=== PATIENT | male | born 1965 | race African-American/Black ===

== ENCOUNTER 2017-08-14 03:10 | Emergency (ER) | payer MEDICARE, MEDICAID ==
[~2017-08-14] VITALS: Ht 188 cm; Wt 99.8 kg
[2017-08-14] MEDS ORDERED: LORazepam 1mg tab ORAL ONE (03:15)
--- NOTE | 2017-08-14 03:15 | Emergency Room Report ---
History of Present Illness General Chief Complaint: Overdose Source: Patient, EMS Present Illness HPI The patient presents with chest pressure and dysphoria after ingesting a marijuana edible. He is a dialysis patient with peritoneal dialysis. He denies any fevers. He feels fatigued. There is no headache. He feels that he' s having difficulty with his memory at the moment. Family concerned as he removed his own PD catheter and appeared to do so clumsily. He is anxious but denies SI. Nausea. No pain. No dyspnea. Some feeling like heart racing. No numbness, tingling or unilateral weakness. Still makes urine. No abdominal pain. Allergies: Coded Allergies: No Known Allergies (Unverified , 08/14/17) Patient History Past Medical History: see triage record Social History: Denies: smoking Social History Narrative with family Reviewed Nursing Documentation: PMH: Agreed, PSxH: Agreed Nursing Documentation-PMH Hx Hypertension: Yes Hx Diabetes: Yes - peritoneal dialysis Hx Dialysis: Yes Review of Systems All Other Systems: negative except mentioned in HPI Physical Exam Vital Signs Date Time Temp Pulse Resp B/P (MAP) Pulse Ox O2 Delivery O2 Flow Rate FiO2 08/14/17 02:53 98.2 106 18 136/79 98 Room Air Sp02 EP Interpretation: reviewed, normal General Appearance: well appearing, no apparent distress, GCS 15 Head: normocephalic Eyes: bilateral eye PERRL, bilateral eye Scleral Injection ENT: moist mucus membranes Neck: supple Respiratory: lungs clear, normal breath sounds Cardiovascular #1: tachycardia Cardiovascular #2: 2+ radial (R) Gastrointestinal: normal inspection, normal bowel sounds, non tender, soft, no mass, non-distended, no guarding, no rebound, other - PD cath Musculoskeletal: back normal, gait/station normal, normal range of motion Neurologic: alert, oriented x3, 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 Complicated as he is PD - ESRD. DDx: adverse reaction to THC, electrolyte abnormality, AMI amongst others. Evaluation with EKG, labs. As PD patient, not aggressive hydration. Monitor cor. Ativan ordered. Ativan held as patient sleeping. Labs remarkable for CRF. Urine not obtained. Patient improved with observation. Patient stable for outpatient observation and treatment. Laboratory Tests Test 08/14/17 03:20 White Blood Count 6.2 K/UL (4.8-10.8) Red Blood Count 3.48 M/UL (4.70-6.10) L Hemoglobin 11.3 G/DL (14.2-18.0) L Hematocrit 35.7 % (42.0-52.0) L Mean Corpuscular Volume 103 FL (80-99) H Mean Corpuscular Hemoglobin 32.5 PG (27.0-31.0) H Mean Corpuscular Hemoglobin Concent 31.6 G/DL (32.0-36.0) L Red Cell Distribution Width 14.6 % (11.6-14.8) Platelet Count 283 K/UL (150-450) Mean Platelet Volume 5.6 FL (6.5-10.1) L Neutrophils (%) (Auto) 68.5 % (45.0-75.0) Lymphocytes (%) (Auto) 17.4 % (20.0-45.0) L Monocytes (%) (Auto) 8.4 % (1.0-10.0) Eosinophils (%) (Auto) 4.1 % (0.0-3.0) H Basophils (%) (Auto) 1.6 % (0.0-2.0) Sodium Level 139 mEQ/L (135-145) Potassium Level 4.8 mEQ/L (3.4-4.9) Chloride Level 97 mEQ/L (98-107) L Carbon Dioxide Level 25 mEQ/L (20-30) Anion Gap 17 (5-15) H Blood Urea Nitrogen 67 mg/dL (7-23) H Creatinine 16.0 mg/dL (0.7-1.2) H Estimate Glomerular Filtration Rate 3.2 mL/min (>60) Glucose Level 160 mg/dL (74-106) H Calcium Level 8.2 mg/dL (8.6-10.2) L Total Bilirubin 0.4 mg/dL (0.0-1.2) Aspartate Amino Transferase (AST) 15 U/L (5-40) Alanine Aminotransferase (ALT) 12 U/L (3-41) Alkaline Phosphatase 108 U/L (40-129) Total Creatine Kinase 233 U/L (38-174) H Troponin I < 0.30 ng/mL (<=0.30) Total Protein 7.0 g/dL (6.6-8.7) Albumin 3.8 g/dL (3.5-5.2) Globulin 3.2 g/dL Albumin/Globulin Ratio 1.1 (1.0-2.7) Salicylates Level < 1 mg/dL (10-30) L Acetaminophen Level < 10 ug/mL (10-30) L Serum Alcohol < 10 mg/dL EKG Diagnostic Results Rate: tachycardiac Rhythm: NSR ST Segments: no acute changes Rhythm Strip Diag. Results EP Interpretation: yes Rhythm: no PVC's, no ectopy, other - ST Chest X-Ray Diagnostic Results Chest X-Ray Diagnostic Results : Chest X-Ray Ordered: Yes # of Views/Limited/Complete: 1 View Indication: Other Interpretation: no effusion, no pneumothorax, other - Pulmonary hypertension and cardiomegaly Impression: Other Electronically Signed by: Electronically signed by Charly Colon MD Last Vital Signs Date Time Temp Pulse Resp B/P (MAP) Pulse Ox O2 Delivery O2 Flow Rate FiO2 08/14/17 07:41 98 16 138/80 96 Room Air 08/14/17 03:30 97.0 Status: improved Disposition: HOME, SELF-CARE Condition: Improved Charly Colon M.D. Aug 14, 2017 03:15
[2017-08-14 03:30] VITALS: BP 155/93
[2017-08-14 03:43] LABS: BASOPHILS % (AUTO) 1.6 % (0.0-2.0); EOSINOPHILS % (AUTO) 4.1 % (0.0-3.0); LYMPHOCYTES % (AUTO) 17.4 % (20.0-45.0); MEAN CORPUSCULAR HEMOGLOBIN 32.5 PG (27.0-31.0); MEAN CORPUSCULAR HGB CONC 31.6 G/DL (32.0-36.0); MEAN CORPUSCULAR VOLUME 103 FL (80-99); MEAN PLATELET VOLUME 5.6 FL (6.5-10.1); MONOCYTES % (AUTO) 8.4 % (1.0-10.0); NEUTROPHILS % (AUTO) 68.5 % (45.0-75.0); PLATELET COUNT 283 K/UL (150-450); RED BLOOD COUNT 3.48 M/UL (4.70-6.10); RED CELL DISTRIBUTION WIDTH 14.6 % (11.6-14.8); WHITE BLOOD COUNT 6.2 K/UL (4.8-10.8)
[2017-08-14 03:59] LABS: ACETAMINOPHEN < 10 ug/mL (10-30); ALANINE AMINOTRANSFERASE 12 U/L (3-41); ALBUMIN/GLOBULIN RATIO 1.1 (1.0-2.7); ALCOHOL < 10 mg/dL; ANION GAP 17 (5-15); ASPARTATE AMINO TRANSFERASE 15 U/L (5-40); CALCIUM 8.2 mg/dL (8.6-10.2); CARBON DIOXIDE 25 mEQ/L (20-30); CHLORIDE 97 mEQ/L (98-107); GLOMERULAR FILTRATION RATE 3.2 mL/min (>60); HEMOLYSIS 11; POTASSIUM 4.8 mEQ/L (3.4-4.9); SODIUM 139 mEQ/L (135-145); TROPONIN I < 0.30 ng/mL (<=0.30)
[2017-08-14 05:08] VITALS: BP 144/84
[2017-08-14 07:41] VITALS: BP 138/80
--- NOTE | 2017-08-14 10:13 | Diagnostic Imaging Report ---
Indication: Dyspnea Comparison: None A single view chest radiograph was obtained. Findings: The heart is enlarged. Lungs are clear with normal vascularity. Bones are remarkable. Impression: No acute findings
--- NOTE | 2017-08-20 23:14 | Cardiology Report ---
APPROVED REPORT EKG Measurement Heart [id number] Sinus tachycardia Septal infarct, age undetermined Abnormal ECG
== END 2017-08-14 06:15 | disposition home or self-care (01) ==
LOC: EDBD 03:10 → EMR 04:00
DX: R07.89 Other chest pain (principal); T40.7X5A Adverse effect of cannabis (derivatives), initial encounter; Y92.89 Other specified places as the place of occurrence of the external cause; I12.0 Hypertensive chronic kidney disease with stage 5 chronic kidney disease or end stage renal disease; N18.6 End stage renal disease; E11.9 Type 2 diabetes mellitus without complications; Z99.2 Dependence on renal dialysis
CPT/HCPCS: 36415; 71010; 80053; 82550; 82962; 84484; 85025; 93005; 99283; G0480; 80329

== ENCOUNTER 2020-06-14 07:43 | Emergency (ER) | payer MEDICARE ==
[~2020-06-14] VITALS: Ht 177.8 cm; Wt 99.8 kg
[2020-06-14 07:45] VITALS: BP 140/68
--- NOTE | 2020-06-14 07:45 | Emergency Room Report ---
History of Present Illness General Chief Complaint: Overdose Source: Patient, EMS Present Illness HPI Patient is a 55-year-old male brought in by ambulance after increased altered mental status. Prior history of end-stage renal disease on peritoneal dialysis. Was noted to be increasing confusion. Reportedly had been ingesting marijuana edibles. Patient had been noted to have a blood sugar of 200 with EMS. Reportedly had been moving all extremities as well as having increased bizarre behavior. 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: No Patient History Past Medical History: see triage record Reviewed Nursing Documentation: PMH: Agreed; PSxH: Agreed Review of Systems All Other Systems: limited - Limited by poor historian Physical Exam Vital Signs Date Time Temp Pulse Resp B/P (MAP) Pulse Ox O2 Delivery O2 Flow Rate FiO2 06/14/20 07:33 97.5 90 16 113/67 (82) 98 Room Air Sp02 EP Interpretation: reviewed, normal General Appearance: normal inspection, well appearing, no apparent distress, alert, Chronically Ill Head: atraumatic ENT: normal ENT inspection, hearing grossly normal, normal voice Neck: normal inspection, full range of motion, supple, no bony tend Respiratory: normal inspection, lungs clear, normal breath sounds, no respiratory distress, no retraction, no wheezing Cardiovascular #1: regular rate, rhythm, no edema Gastrointestinal: normal inspection, normal bowel sounds, non tender, soft, no guarding, no hernia, other - Peritoneal dialysis catheter in place Genitourinary: no CVA tenderness Musculoskeletal: normal inspection, back normal, normal range of motion Neurologic: alert, motor strength/tone normal, oriented x3, responsive, speech normal, other - Confused Psychiatric: normal inspection, judgement/insight normal, mood/affect normal Skin: no rash Medical Decision Making Diagnostic Impression: Primary Impression: Drug overdose Additional Impressions: Renal failure treated with peritoneal dialysis Adverse reaction to cannabis ER Course Patient presented for altered mental status. Differential diagnosis include was not limited to uremia, hypoglycemia, drug overdose, electrolyte abnormality among others. Because of complexity of patient's case laboratory tests and imaging studies were ordered. Patient was noted to have some prior history of peritoneal dialysis and has a benign abdominal exam. Patient's blood sugar was checked by EMS and was 200. CT imaging was ordered due to patient's altered mental status.Patient was observed in the emergency department and had improvement in his mental status over time. CT imaging showed no evidence of acute pathology. Patient had been noted to be awake alert and oriented x3. Patient was offered admission due to abnormal on EKG. Patient initially refused. Labs Test 06/14/20 07:50 White Blood Count 6.5 K/UL (4.8-10.8) Red Blood Count 3.51 M/UL (4.70-6.10) Hemoglobin 10.9 G/DL (14.2-18.0) Hematocrit 33.7 % (42.0-52.0) Mean Corpuscular Volume 96 FL (80-99) Mean Corpuscular Hemoglobin 30.9 PG (27.0-31.0) Mean Corpuscular Hemoglobin Concent 32.2 G/DL (32.0-36.0) Red Cell Distribution Width 15.0 % (11.6-14.8) Platelet Count 350 K/UL (150-450) Mean Platelet Volume 5.9 FL (6.5-10.1) Neutrophils (%) (Auto) 65.2 % (45.0-75.0) Lymphocytes (%) (Auto) 21.4 % (20.0-45.0) Monocytes (%) (Auto) 9.0 % (1.0-10.0) Eosinophils (%) (Auto) 2.8 % (0.0-3.0) Basophils (%) (Auto) 1.6 % (0.0-2.0) Sodium Level 134 MMOL/L (136-145) Potassium Level 3.4 MMOL/L (3.5-5.1) Chloride Level 94 MMOL/L (98-107) Carbon Dioxide Level 28 MMOL/L (21-32) Anion Gap 12 mmol/L (5-15) Blood Urea Nitrogen 56 mg/dL (7-18) Creatinine 16.9 MG/DL (0.55-1.30) Estimat Glomerular Filtration Rate 3.6 mL/min (>60) Glucose Level 171 MG/DL (74-106) Lactic Acid Level 1.40 mmol/L (0.4-2.0) Calcium Level 9.9 MG/DL (8.5-10.1) Total Bilirubin 0.5 MG/DL (0.2-1.0) Aspartate Amino Transf (AST/SGOT) 18 U/L (15-37) Alanine Aminotransferase (ALT/SGPT) 20 U/L (12-78) Alkaline Phosphatase 94 U/L (46-116) Ammonia 10 umol/L (11-32) Troponin I 0.012 ng/mL (0.000-0.056) Total Protein 8.6 G/DL (6.4-8.2) Albumin 3.3 G/DL (3.4-5.0) Globulin 5.3 g/dL Albumin/Globulin Ratio 0.6 (1.0-2.7) Salicylates Level 0.8 ug/mL (2.8-20) Acetaminophen Level < 2 MCG/ML (10-30) Serum Alcohol < 3 mg/dL EKG Diagnostic Results Rate: normal Rhythm: NSR ST Segments: other - T wave inversion. Last Vital Signs Date Time Temp Pulse Resp B/P (MAP) Pulse Ox O2 Delivery O2 Flow Rate FiO2 06/14/20 07:33 97.5 90 16 113/67 (82) 98 Room Air Status: unchanged Disposition: SHORT-TERM HOSP Condition: Stable Song Kwong MD Jun 14, 2020 07:45
--- NOTE | 2020-06-14 07:50 | NUR ---
ED Nurse Note: Patient BIBA from home after called 911 d/t patient acting abnormal. Patient states he normally eats one 5 mg THC gummy to assist with sleep. Patient ate 3 gummies at one time last night, total of 15 mg THC. Patient states he feels that he took too much, feels "spaced out". Patient AxO x 4, able to communicate clearly and express needs. Pupils PERLLA. Breathing even and unlabored. Patient on the ladler, VSS. Will continue to monitor.
[2020-06-14] MEDS ORDERED: Thiamine HCl 100 MG in D5W 55 ML IVPB ONE (08:00)
--- NOTE | 2020-06-14 08:09 | NUR ---
ED Nurse Note: 20 g IV started in right forearm by EMS prior to arrival. Blood drawn and sent to lab.
--- NOTE | 2020-06-14 08:15 | NUR ---
ED Nurse Note: Patient taken to CT.
[2020-06-14 08:21] LABS: BASOPHILS % (AUTO) 1.6 % (0.0-2.0); EOSINOPHILS % (AUTO) 2.8 % (0.0-3.0); HEMATOCRIT 33.7 % (42.0-52.0); HEMOGLOBIN 10.9 G/DL (14.2-18.0); LYMPHOCYTES % (AUTO) 21.4 % (20.0-45.0); MEAN CORPUSCULAR VOLUME 96 FL (80-99); NEUTROPHILS % (AUTO) 65.2 % (45.0-75.0); PLATELET COUNT 350 K/UL (150-450); RED BLOOD COUNT 3.51 M/UL (4.70-6.10); WHITE BLOOD COUNT 6.5 K/UL (4.8-10.8)
--- NOTE | 2020-06-14 08:25 | NUR ---
ED Nurse Note: Patient returned to lab
[2020-06-14 08:28] LABS: ANION GAP 12 mmol/L (5-15); BLOOD UREA NITROGEN 56 mg/dL (7-18); CALCIUM 9.9 MG/DL (8.5-10.1); CARBON DIOXIDE 28 MMOL/L (21-32); CHLORIDE 94 MMOL/L (98-107); CREATININE 16.9 MG/DL (0.55-1.30); POTASSIUM 3.4 MMOL/L (3.5-5.1); SODIUM 134 MMOL/L (136-145)
[2020-06-14 08:30] LABS: AMMONIA 10 umol/L (11-32)
[2020-06-14 08:32] LABS: ALANINE AMINOTRANSFERASE 20 U/L (12-78); ALBUMIN 3.3 G/DL (3.4-5.0); ALBUMIN/GLOBULIN RATIO 0.6 (1.0-2.7); ALKALINE PHOSPHATASE 94 U/L (46-116); ASPARTATE AMINO TRANSFERASE 18 U/L (15-37); BILIRUBIN,TOTAL 0.5 MG/DL (0.2-1.0)
--- NOTE | 2020-06-14 09:38 | Diagnostic Imaging Report ---
Indication: Reason For Exam: AMS Technique: Continuous helical CT scanning of the head was performed without intravenous contrast material. Axial and coronal 5 mm sections were generated. Dose: Total Dose Length Product - DLP [address] Dose Index - CTDIvol(s) 160.20 mGy. Automated exposure control was utilized for dose reduction. Comparison:None. Findings: The ventricular system is normal in size and configuration. There is no shift of midline structures. No abnormal extra-axial fluid collections are noted. There is no evidence of intracerebral bleeding. No other abnormal high or low density areas are noted within the brain. Impression: Normal CT scan of the head without contrast material. The CT scanner at [facility] is accredited by the [employer] and the scans are performed using protocols designed to limit radiation exposure to as low as reasonably achievable to attain images of sufficient resolution adequate for diagnostic evaluation.
--- NOTE | 2020-06-14 09:51 | NUR ---
ED Nurse Note: Patient attempted to provide urine x 2, unable to urinate. Urinal left at bedside with patient.
[2020-06-14 10:21] VITALS: BP 139/72
--- NOTE | 2020-06-14 10:21 | NUR ---
ED Nurse Note: Patient resting in bed, no s/s of acute distress. Breathing even and unlabored, patient states he is feeling better than when he came in.
[2020-06-14] MEDS ORDERED: Aspirin Baby 81mg ORAL ONE (10:45)
[2020-06-14] MEDS ORDERED: statin (11:10)
[2020-06-14] MEDS ORDERED: FUROSEMIDE40 MG ORAL (11:10)
[2020-06-14] MEDS ORDERED: NEPHROVITE1 TAB ORAL (11:10)
[2020-06-14 12:20] VITALS: BP 138/75
--- NOTE | 2020-06-14 12:20 | NUR ---
AMA: SEE AMA FORM.
== END 2020-06-14 12:20 | disposition left against medical advice (07) ==
LOC: EDBD 07:43 → MERGE 07:43 → EMR 08:00
DX: T40.7X1A Poisoning by cannabis (derivatives), accidental (unintentional), initial encounter (principal); N19 Unspecified kidney failure; Y92.9 Unspecified place or not applicable; Z99.2 Dependence on renal dialysis
CPT/HCPCS: 70450; 80053; 82140; 83605; 84484; 85025; 96365; 99284; G0480